=== PATIENT | female | born 1950 | race African-American/Black ===

== ENCOUNTER 2018-06-28 16:52 | Inpatient (IN) | payer MEDICAID, MEDICARE, OTHER ==
[~2018-06-28] VITALS: Ht 162.6 cm; Wt 66.2 kg
[2018-06-28] MEDS: ALBUTEROL (0.083%) 2.5MG/3ML NEB HHN SCH ×3 (17:45→18:20)
[2018-06-28] MEDS ORDERED: IPRATROPIUM BROMIDE (0.02%) 0.5MG/2.5ML NEB HHN STA (17:45)
[2018-06-28] MEDS ORDERED: SODIUM CHLORIDE 0.9% 1,000 ML IV ONE (17:45)
[2018-06-28] MEDS ORDERED: METHYLPREDNISOLONE SOD SUCC 125 MG/2 ML VIAL IV STA (17:45)
[2018-06-28] MEDS ORDERED: MAGNESIUM 2 G PREMIX 50 ML IV ONE (17:45)
[2018-06-28 18:56] LABS: BASOPHILS % 0.6 % (0.0-2.0); CHLORIDE 100 mEq/L (98-107); EOSINOPHILS % 1.2 % (0.0-5.0); HEMATOCRIT. 34.8 % (36.0-48.0); HEMOGLOBIN. 11.6 g/dL (12.0-16.0); LYMPHOCYTES % 36.9 % (20.0-50.0); MEAN CORPUSCULAR HEMOGLOBIN 31.3 pg (28.0-32.0); MEAN PLATELET VOLUME 10.3 fl (7.4-10.4); MONOCYTES % 13.1 % (2.0-8.0); NEUTROPHILS % 48.2 % (40.0-76.0); PLATELET 149 x1000/uL (130-400); RED CELL DISTRIBUTION WIDTH 14.3 % (11.6-14.6)
[2018-06-28 19:00] LABS: ETHANOL BLOOD 58 mg/dL
[2018-06-28] MEDS ORDERED: SODIUM CHLORIDE 0.9% 1000ML BAG (SEPSIS BOLUS) IV ONE (20:30)
[2018-06-28] MEDS ORDERED: CEFTRIAXONE 1 G PREMIX 50 ML IV ONE (20:30)
[2018-06-28] MEDS ORDERED: AZITHROMYCIN 500 MG in DEXT 5% WATER 250 ML IV ONE (20:30)
[2018-06-28 21:02] LABS: CLARITY URINE CLEAR (CLEAR); KETONES URINE NEGATIVE (NEGATIVE); LEUKOCYTE ESTERASE URINE NEGATIVE (NEGATIVE); NITRITE URINE NEGATIVE (NEGATIVE); OCCULT BLOOD URINE NEGATIVE (NEGATIVE); PH URINE 6.5 (4.5-8.0); PROTEIN URINE NEGATIVE (NEGATIVE); SPECIFIC GRAVITY URINE 1.004 (1.005-1.030); UROBILINOGEN URINE 0.2 E.U./dL (0.2-1.0)
[2018-06-28 21:04] LABS: COLOR URINE STRAW (YELLOW)
[2018-06-28] MEDS ORDERED: ACETAMINOPHEN 325MG TABLET PO ONE (22:15)
[2018-06-28] MEDS ORDERED: ALBUTEROL (0.083%) 2.5MG/3ML NEB HHN STA (22:26)
[2018-06-29 00:46] VITALS: BP 132/67
[2018-06-29] MEDS ORDERED: GABA-531 PO (01:42)
[2018-06-29] MEDS ORDERED: QUET300T2 PO (01:42)
[2018-06-29] MEDS ORDERED: QUETIAPINE FUMARATE 100MG TABLET PO SCH (01:54)
[2018-06-29 04:00] VITALS: BP 113/61
[2018-06-29] MEDS: IPRATROPIUM/ALBUTEROL 0.5-3(2.5)MG/3ML NEB HHN SCH ×5 (04:10→21:11)
[2018-06-29] MEDS: SODIUM CHL 0.45% + KCL 20MEQ/L 1,000 ML IV SCH ×2 (04:22→16:25)
[2018-06-29] MEDS: PIPERACILLIN/TAZ 3.375G PREMIX 50 ML IV SCH ×4 (04:22→23:03)
[2018-06-29] MEDS: PANTOPRAZOLE 40MG DR TABLET PO SCH (05:00)
[2018-06-29] MEDS ORDERED: VANCOMYCIN 1250MG in DEXTROSE 5% WATER 250ML IV SCH (05:00)
[2018-06-29] MEDS: GABAPENTIN 300MG CAPSULE PO SCH ×3 (05:01→21:18)
[2018-06-29 06:28] LABS: BASOPHILS % 0.2 % (0.0-2.0); CHLORIDE 104 mEq/L (98-107); HEMATOCRIT. 31.3 % (36.0-48.0); HEMOGLOBIN. 10.4 g/dL (12.0-16.0); LYMPHOCYTES % 13.4 % (20.0-50.0); MEAN CORPUSCULAR HEMOGLOBIN 31.2 pg (28.0-32.0); MEAN PLATELET VOLUME 10.1 fl (7.4-10.4); MONOCYTES % 4.8 % (2.0-8.0); NEUTROPHILS % 81.6 % (40.0-76.0); PLATELET 145 x1000/uL (130-400); RED BLOOD CELL COUNT 3.32 mill/uL (4.2-5.4); RED CELL DISTRIBUTION WIDTH 14.4 % (11.6-14.6)
[2018-06-29 08:00] VITALS: BP 131/68
[2018-06-29] MEDS ORDERED: MEDICATION NOT ON FORMULARY EA (Gabapentin 300 MG) PO SCH (09:00)
[2018-06-29] MEDS: ENOXAPARIN 40MG/0.4ML SYR SUBCUT SCH (09:22)
[2018-06-29] MEDS ORDERED: AMLO5TAB88 MT (11:16)
[2018-06-29] MEDS ORDERED: RISP3TAB13 MT (11:16)
[2018-06-29] MEDS ORDERED: PANT40TA4 MT (11:22)
[2018-06-29] MEDS ORDERED: METO-411 MT (11:22)
[2018-06-29] MEDS ORDERED: LORA0.5T2 MT (11:22)
[2018-06-29] MEDS ORDERED: FLUT12AE7 INH (11:22)
[2018-06-29] MEDS ORDERED: LISI40TA4 MT (11:22)
[2018-06-29] MEDS ORDERED: FAMO40TA7 MT (11:22)
[2018-06-29] MEDS ORDERED: MIRT15TA7 MT (11:22)
[2018-06-29 11:54] LABS: BG BASE EXCESS -1.4 mmol/L (-2.0-2.0); BG CARBOXYHEMOGLOBIN 0.3 % (0.5-1.5); BG DEOXYHEMOGLOBIN 5.3 % (0.0-5.0); BG METHEMOGLOBIN 0.2 % (0.0-1.5); BG OXYGEN SATURATION 94.7 % (92.0-98.5); BG OXYHEMOGLOBIN 94.2 % (94.0-97.0); BG PCO2 32.3 mmHg (35.0-45.0); BG PH 7.451 (7.350-7.450); BG PO2 70.6 mmHg (75.0-100.0); BG SAMPLE SITE RIGHT RADIAL; BG TOTAL HEMOGLOBIN 10.6 g/dL (12.0-18.0); BG VENT MODE ROOM AIR
[2018-06-29 12:00] VITALS: BP 132/69
[2018-06-29 12:27] LABS: *AMPHETAMINES SCREEN URINE NEGATIVE (NEGATIVE); *BARBITURATES SCREEN URINE NEGATIVE (NEGATIVE); *BENZODIAZEPINES SCREEN URINE NEGATIVE (NEGATIVE); *COCAINE SCREEN URINE PRESUMTIVE POSITIVE (NEGATIVE); METHADONE URINE SCREEN NEGATIVE (NEGATIVE); OPIATES URINE SCREEN NEGATIVE (NEGATIVE)
[2018-06-29 12:28] LABS: CANNABINOID URINE SCREEN NEGATIVE (NEGATIVE); PHENCYCLIDINE URINE SCREEN NEGATIVE (NEGATIVE)
[2018-06-29] MEDS ORDERED: LORAZEPAM 2MG/ML CPJ IV PRN ×2 (14:30→20:30)
[2018-06-29 16:00] VITALS: BP 137/72
[2018-06-29] MEDS: NICOTINE 7MG PATCH TD SCH (17:02)
[2018-06-29] MEDS: AMLODIPINE 5MG TABLET PO SCH (17:03)
[2018-06-29] MEDS: METHYLPREDNISOLONE SOD SUCC 40 MG/ML VIAL IV SCH (17:11)
[2018-06-29 18:28] LABS: INR 1.1; PROTHROMBIN TIME 11.5 sec (9.6-11.0)
[2018-06-29 20:00] VITALS: BP 119/76
[2018-06-29] MEDS ORDERED: MEDICATION NOT ON FORMULARY EA (Risperidone 1 TAB) MT SCH (21:00)
[2018-06-29] MEDS ORDERED: MEDICATION NOT ON FORMULARY EA (Mirtazapine 1 TAB) MT SCH (21:00)
[2018-06-29] MEDS: QUETIAPINE FUMARATE 100MG TABLET PO SCH (21:18)
[2018-06-29] MEDS: MIRTAZAPINE 15MG TABLET PO SCH (21:18)
[2018-06-29] MEDS: BUDESONIDE 0.5MG/2ML NEB HHN SCH (21:19)
[2018-06-29] MEDS: RISPERIDONE 3 MG TABLET PO SCH (21:19)
[2018-06-29] MEDS: VANCOMYCIN 750 MG PREMIX 150 ML IV SCH (21:23)
[2018-06-30] VITALS: BP 118/67
[2018-06-30] MEDS: METHYLPREDNISOLONE SOD SUCC 40 MG/ML VIAL IV SCH ×3 (00:30→16:50)
[2018-06-30 04:00] VITALS: BP 147/77
[2018-06-30] MEDS: PIPERACILLIN/TAZ 3.375G PREMIX 50 ML IV SCH ×4 (04:41→21:48)
[2018-06-30] MEDS: GABAPENTIN 300MG CAPSULE PO SCH ×3 (05:00→21:47)
[2018-06-30] MEDS: PANTOPRAZOLE 40MG DR TABLET PO SCH (06:00)
[2018-06-30] MEDS: SODIUM CHL 0.45% + KCL 20MEQ/L 1,000 ML IV SCH (06:02)
[2018-06-30 07:34] LABS: HEMATOCRIT 31.6 % (36.0-48.0); HEMOGLOBIN 10.4 g/dL (12.0-16.0); MEAN CORPUSCULAR HEMOGLOBIN 30.9 pg (28.0-32.0); MEAN CORPUSCULAR VOLUME 94.1 fL (81.0-99.0); PLATELET 146 x1000/uL (130-400); RED BLOOD CELL COUNT 3.35 mill/uL (4.2-5.4); RED CELL DISTRIBUTION WIDTH 14.2 % (11.6-14.6)
[2018-06-30 07:39] LABS: CHLORIDE 101 mEq/L (98-107)
[2018-06-30 08:00] VITALS: BP 135/76
[2018-06-30] MEDS: BUDESONIDE 0.5MG/2ML NEB HHN SCH ×2 (08:38→21:10)
[2018-06-30] MEDS: IPRATROPIUM/ALBUTEROL 0.5-3(2.5)MG/3ML NEB HHN SCH ×4 (08:38→21:10)
[2018-06-30] MEDS: THIAMINE HCL 100MG TABLET PO SCH (09:22)
[2018-06-30] MEDS: AMLODIPINE 5MG TABLET PO SCH (09:22)
[2018-06-30] MEDS: FOLIC ACID 1MG TABLET PO SCH (09:22)
[2018-06-30] MEDS: MULTIVITAMINS,THER W-MINERALS TABLET PO SCH (09:22)
[2018-06-30] MEDS: NICOTINE 7MG PATCH TD SCH (09:23)
[2018-06-30] MEDS: ENOXAPARIN 40MG/0.4ML SYR SUBCUT SCH (09:23)
[2018-06-30] MEDS: VANCOMYCIN 750 MG PREMIX 150 ML IV SCH ×2 (10:19→21:48)
[2018-06-30 12:00] VITALS: BP 138/75
[2018-06-30 16:00] VITALS: BP 123/72
[2018-06-30] MEDS ORDERED: DILTIAZEM HCL 30MG TABLET PO SCH (16:00)
[2018-06-30] MEDS ORDERED: GUAIFENESIN 200MG/10ML SUGAR FREE UDC PO PRN (16:00)
[2018-06-30] MEDS ORDERED: LACTULOSE 20G/30ML UDC PO NR (18:00)
[2018-06-30] MEDS: DOCUSATE SODIUM 100MG CAPSULE PO SCH (19:02)
[2018-06-30 20:00] VITALS: BP 151/79
[2018-06-30] MEDS: QUETIAPINE FUMARATE 100MG TABLET PO SCH (21:47)
[2018-06-30] MEDS: MIRTAZAPINE 15MG TABLET PO SCH (21:47)
[2018-06-30] MEDS: RISPERIDONE 3 MG TABLET PO SCH (21:50)
[2018-06-30] MEDS: DILTIAZEM HCL 30MG TABLET PO SCH (23:55)
[2018-07-01] VITALS: BP 169/91
[2018-07-01] MEDS: PIPERACILLIN/TAZ 3.375G PREMIX 50 ML IV SCH ×4 (03:50→23:02)
[2018-07-01 04:00] VITALS: BP 120/63
[2018-07-01 06:31] LABS: HEMATOCRIT 31.2 % (36.0-48.0); HEMOGLOBIN 10.3 g/dL (12.0-16.0); MEAN CORPUSCULAR HEMOGLOBIN 30.9 pg (28.0-32.0); MEAN CORPUSCULAR VOLUME 93.7 fL (81.0-99.0); PLATELET 149 x1000/uL (130-400); RED BLOOD CELL COUNT 3.33 mill/uL (4.2-5.4); RED CELL DISTRIBUTION WIDTH 14.2 % (11.6-14.6)
[2018-07-01] MEDS: PANTOPRAZOLE 40MG DR TABLET PO SCH (06:47)
[2018-07-01] MEDS: GABAPENTIN 300MG CAPSULE PO SCH ×3 (06:48→21:01)
[2018-07-01] MEDS: METHYLPREDNISOLONE SOD SUCC 40 MG/ML VIAL IV SCH ×2 (06:48→16:26)
[2018-07-01] MEDS: DILTIAZEM HCL 30MG TABLET PO SCH ×3 (06:48→17:49)
[2018-07-01 07:31] LABS: CHLORIDE 103 mEq/L (98-107)
[2018-07-01 08:00] VITALS: BP 125/76
[2018-07-01] MEDS: ENOXAPARIN 40MG/0.4ML SYR SUBCUT SCH (08:59)
[2018-07-01] MEDS: THIAMINE HCL 100MG TABLET PO SCH (09:00)
[2018-07-01] MEDS: VANCOMYCIN 750 MG PREMIX 150 ML IV SCH ×2 (09:00→21:01)
[2018-07-01] MEDS: DOCUSATE SODIUM 100MG CAPSULE PO SCH ×2 (09:00→16:27)
[2018-07-01] MEDS: MULTIVITAMINS,THER W-MINERALS TABLET PO SCH (09:00)
[2018-07-01] MEDS: AMLODIPINE 5MG TABLET PO SCH (09:00)
[2018-07-01] MEDS: FOLIC ACID 1MG TABLET PO SCH (09:00)
[2018-07-01] MEDS: LORAZEPAM 2MG/ML CPJ IV PRN (09:01)
[2018-07-01] MEDS: NICOTINE 7MG PATCH TD SCH (09:01)
[2018-07-01] MEDS: BUDESONIDE 0.5MG/2ML NEB HHN SCH ×2 (10:12→20:34)
[2018-07-01] MEDS: IPRATROPIUM/ALBUTEROL 0.5-3(2.5)MG/3ML NEB HHN SCH ×4 (10:12→20:35)
[2018-07-01 12:00] VITALS: BP 131/64
[2018-07-01] MEDS ORDERED: LACTULOSE 20G/30ML UDC PO SCH (14:15)
[2018-07-01] MEDS ORDERED: IOHEXOL-350 100 ML BOTTLE ONE (15:02)
[2018-07-01 16:00] VITALS: BP 133/79
[2018-07-01] MEDS: HYDROCODONE/ACETAMINOPHEN 5/325MG TABLET PO PRN (17:49)
[2018-07-01 20:00] VITALS: BP 133/74
[2018-07-01] MEDS: RISPERIDONE 3 MG TABLET PO SCH (21:01)
[2018-07-01] MEDS: MIRTAZAPINE 15MG TABLET PO SCH (21:01)
[2018-07-01] MEDS: QUETIAPINE FUMARATE 100MG TABLET PO SCH (21:01)
[2018-07-02] VITALS: BP 115/63
[2018-07-02] MEDS: DILTIAZEM HCL 30MG TABLET PO SCH ×4 (00:04→12:23)
[2018-07-02] MEDS: IPRATROPIUM/ALBUTEROL 0.5-3(2.5)MG/3ML NEB HHN SCH ×6 (00:23→21:20)
[2018-07-02 04:00] VITALS: BP 140/74
[2018-07-02] MEDS: PIPERACILLIN/TAZ 3.375G PREMIX 50 ML IV SCH ×4 (05:32→23:43)
[2018-07-02] MEDS: METHYLPREDNISOLONE SOD SUCC 40 MG/ML VIAL IV SCH ×2 (05:32→16:13)
[2018-07-02] MEDS: PANTOPRAZOLE 40MG DR TABLET PO SCH (05:33)
[2018-07-02] MEDS: GABAPENTIN 300MG CAPSULE PO SCH ×3 (05:33→23:43)
[2018-07-02 06:34] LABS: HEMATOCRIT 29.9 % (36.0-48.0); HEMOGLOBIN 9.9 g/dL (12.0-16.0); MEAN CORPUSCULAR VOLUME 93.2 fL (81.0-99.0); PLATELET 155 x1000/uL (130-400); RED BLOOD CELL COUNT 3.21 mill/uL (4.2-5.4); RED CELL DISTRIBUTION WIDTH 14.5 % (11.6-14.6)
[2018-07-02 06:43] LABS: CHLORIDE 100 mEq/L (98-107)
[2018-07-02 08:00] VITALS: BP 138/73
[2018-07-02] MEDS: FOLIC ACID 1MG TABLET PO SCH (08:19)
[2018-07-02] MEDS: MULTIVITAMINS,THER W-MINERALS TABLET PO SCH (08:19)
[2018-07-02] MEDS: NICOTINE 7MG PATCH TD SCH (08:19)
[2018-07-02] MEDS: VANCOMYCIN 750 MG PREMIX 150 ML IV SCH ×2 (08:19→21:54)
[2018-07-02] MEDS: ENOXAPARIN 40MG/0.4ML SYR SUBCUT SCH (08:19)
[2018-07-02] MEDS: DOCUSATE SODIUM 100MG CAPSULE PO SCH ×2 (08:20→17:00)
[2018-07-02] MEDS: AMLODIPINE 5MG TABLET PO SCH (08:20)
[2018-07-02] MEDS: THIAMINE HCL 100MG TABLET PO SCH (08:20)
[2018-07-02] MEDS: LORAZEPAM 2MG/ML CPJ IV PRN (08:35)
[2018-07-02] MEDS: BUDESONIDE 0.5MG/2ML NEB HHN SCH ×2 (10:10→21:19)
[2018-07-02 12:00] VITALS: BP 117/54
[2018-07-02 16:00] VITALS: BP 131/76
[2018-07-02] MEDS ORDERED: ACETAMINOPHEN 325MG TABLET PO PRN (16:45)
[2018-07-02 20:00] VITALS: BP 146/87
[2018-07-02] MEDS: HYDROCODONE/ACETAMINOPHEN 5/325MG TABLET PO PRN (21:17)
[2018-07-02] MEDS ORDERED: BUDESONIDE 0.5MG/2ML NEB ONE (21:19)
[2018-07-02] MEDS: QUETIAPINE FUMARATE 100MG TABLET PO SCH (21:21)
[2018-07-02] MEDS: RISPERIDONE 3 MG TABLET PO SCH (21:54)
[2018-07-02] MEDS: MIRTAZAPINE 15MG TABLET PO SCH (21:54)
[2018-07-03] VITALS: BP 133/68
[2018-07-03] MEDS: IPRATROPIUM/ALBUTEROL 0.5-3(2.5)MG/3ML NEB HHN SCH ×3 (01:00→09:00)
[2018-07-03 04:00] VITALS: BP 106/70
[2018-07-03] MEDS: METHYLPREDNISOLONE SOD SUCC 40 MG/ML VIAL IV SCH (04:07)
[2018-07-03] MEDS: PIPERACILLIN/TAZ 3.375G PREMIX 50 ML IV SCH (04:07)
[2018-07-03] MEDS: DILTIAZEM HCL 30MG TABLET PO SCH (05:52)
[2018-07-03] MEDS: GABAPENTIN 300MG CAPSULE PO SCH (06:15)
[2018-07-03 08:00] VITALS: BP 140/80
[2018-07-03] MEDS: DOCUSATE SODIUM 100MG CAPSULE PO SCH (08:36)
[2018-07-03] MEDS: VANCOMYCIN 750 MG PREMIX 150 ML IV SCH (08:36)
[2018-07-03] MEDS: AMLODIPINE 5MG TABLET PO SCH (08:37)
[2018-07-03] MEDS: THIAMINE HCL 100MG TABLET PO SCH (08:38)
[2018-07-03] MEDS: ENOXAPARIN 40MG/0.4ML SYR SUBCUT SCH (08:38)
[2018-07-03] MEDS: MULTIVITAMINS,THER W-MINERALS TABLET PO SCH (08:38)
[2018-07-03] MEDS: NICOTINE 7MG PATCH TD SCH (08:38)
[2018-07-03] MEDS: FOLIC ACID 1MG TABLET PO SCH (08:41)
[2018-07-03] MEDS ORDERED: FAMOTIDINE 20MG TABLET PO SCH (09:00)
[2018-07-03 09:27] VITALS: BP 140/80
== END 2018-07-03 10:45 | disposition home health service (06) | DRG 190 ==
LOC: ER 16:52 → 5WST 21:35 → EDBEDREQTM 21:36 → EDBEDREQ 21:36 → ENRESERV 22:51 → 5WST 06-29 02:11
PROVIDERS: ADMIT Internal Medicine; ATTEND Internal Medicine
DX: J44.0 Chronic obstructive pulmonary disease with (acute) lower respiratory infection (principal); J18.1 Lobar pneumonia, unspecified organism; E87.2 Acidosis; J44.1 Chronic obstructive pulmonary disease with (acute) exacerbation; I10 Essential (primary) hypertension; F32.9 Major depressive disorder, single episode, unspecified; K21.9 Gastro-esophageal reflux disease without esophagitis; D64.9 Anemia, unspecified; K59.00 Constipation, unspecified; F41.9 Anxiety disorder, unspecified; F10.10 Alcohol abuse, uncomplicated; F14.10 Cocaine abuse, uncomplicated; F17.210 Nicotine dependence, cigarettes, uncomplicated; Y90.2 Blood alcohol level of 40-59 mg/100 ml; Z88.5 Allergy status to narcotic agent; Z90.49 Acquired absence of other specified parts of digestive tract
CPT/HCPCS: 36415; 36600; 71045; 71275; 80048; 80202; 80305; 80320; 82375; 82805; 83605; 83880; 84484; 85027; 85379; 87804; 93005; 93306; 93970; 94640; 96365; 96366; 96367; 96375; 97116; 97162; 99285; J0456; J0696; J1650; J2060; J2543; J2920; J2930; J3370; J3475; J3480; J7030; J7040; J7050; J7060; J7611; J7620; J7626; Q9967; A4315; G0480

== ENCOUNTER 2019-01-13 10:31 | Emergency (ER) | payer MEDICARE, MEDICAID ==
[~2019-01-13] VITALS: Ht 160 cm; Wt 63.0 kg
[~2019-01-13 10:31] MED LIST: AMLO5TAB88 MT; FAMO40TA7 MT; FLUT12AE7 INH; GABA-531 PO; LISI40TA4 MT; LORA0.5T2 MT; METO-411 MT; MIRT15TA7 MT; PANT40TA4 MT; QUET300T2 PO; RISP3TAB13 MT
[2019-01-13] MEDS ORDERED: OXYCODONE HCL/ACETAMINOPHEN 5/325MG TABLET PO ONE (11:30)
[2019-01-13] MEDS ORDERED: ONDANSETRON 4MG ODT PO ONE (11:30)
[2019-01-13 11:45] LABS: CHLORIDE 92 mEq/L (98-107)
[2019-01-13 11:49] LABS: ETHANOL BLOOD < 10 mg/dL
[2019-01-13 11:50] LABS: AMYLASE 80 IU/L (25-115)
[2019-01-13] MEDS ORDERED: POTASSIUM CHLORIDE 20MEQ TABLET SR PO ONE (13:00)
[2019-01-13 13:03] LABS: CANNABINOID URINE SCREEN NEGATIVE (NEGATIVE); PHENCYCLIDINE URINE SCREEN NEGATIVE (NEGATIVE)
[2019-01-13 13:04] LABS: *AMPHETAMINES SCREEN URINE NEGATIVE (NEGATIVE); METHADONE URINE SCREEN NEGATIVE (NEGATIVE); OPIATES URINE SCREEN PRESUMTIVE POSITIVE (NEGATIVE)
[2019-01-13 13:06] LABS: *BENZODIAZEPINES SCREEN URINE NEGATIVE (NEGATIVE)
[2019-01-13 13:07] LABS: *BARBITURATES SCREEN URINE NEGATIVE (NEGATIVE); *COCAINE SCREEN URINE PRESUMTIVE POSITIVE (NEGATIVE)
[2019-01-13 13:45] VITALS: BP 131/72
== END 2019-01-13 13:50 | disposition home or self-care (01) ==
LOC: ER 10:31
DX: K29.20 Alcoholic gastritis without bleeding (principal); Y90.0 Blood alcohol level of less than 20 mg/100 ml; F14.10 Cocaine abuse, uncomplicated; F11.10 Opioid abuse, uncomplicated; F41.9 Anxiety disorder, unspecified; J44.9 Chronic obstructive pulmonary disease, unspecified; F32.9 Major depressive disorder, single episode, unspecified; K21.9 Gastro-esophageal reflux disease without esophagitis; I10 Essential (primary) hypertension; Z90.49 Acquired absence of other specified parts of digestive tract; Z79.899 Other long term (current) drug therapy; Z88.5 Allergy status to narcotic agent
CPT/HCPCS: 36415; 80053; 80305; 80320; 82150; 99284; Q0162; G0480

== ENCOUNTER 2019-03-28 11:09 | Emergency (ER) | payer MEDICARE, MEDICAID, OTHER ==
[~2019-03-28] VITALS: Ht 162.6 cm; Wt 62.0 kg
[2019-03-28 13:47] VITALS: BP 151/79
== END 2019-03-28 14:00 | disposition home or self-care (01) ==
LOC: ER 11:09
DX: Z00.00 Encounter for general adult medical examination without abnormal findings (principal); I10 Essential (primary) hypertension; Z90.49 Acquired absence of other specified parts of digestive tract; Z88.5 Allergy status to narcotic agent; Z98.890 Other specified postprocedural states
CPT/HCPCS: 71045; 99283